=== PATIENT | female | born 1980 | race Caucasian/White ===

== ENCOUNTER 2016-09-03 18:03 | Emergency (ER) | payer OTHER ==
[~2016-09-03] VITALS: Ht 172.7 cm; Wt 113.4 kg
[2016-09-03 19:02] LABS: BASO % 0.5 % (0.0-1.0); EOS # 0.6 K/mm3 (0.0-0.50); EOS % 6.2 % (0.0-3.0); LARGE UNSTAINED CELL # 0.2 K/mm3 (0.0-0.4); LARGE UNSTAINED CELL % 1.7 % (0.0-4.0); LYMPH # 2.5 K/mm3 (1.5-4.5); LYMPH % 26.6 % (24.0-44.0); MEAN CORPUSCULAR HEMOGLOBIN 28.5 pg (27.0-33.0); MEAN CORPUSCULAR HGB CONC 32.7 g/dl (32.0-36.5); MEAN CORPUSCULAR VOLUME 87.1 fl (80.0-96.0); MONO # 0.6 K/mm3 (0.0-0.8); MONO % 6.7 % (0.0-5.0); NEUTROPHILS # 5.2 K/mm3 (1.8-7.7); NEUTROPHILS % 58.3 % (36.0-66.0); PLATELET COUNT, AUTOMATED 317 k/mm3 (150-450); RED CELL DISTRIBUTION WIDTH 13.2 % (11.5-14.5)
[2016-09-03 19:06] VITALS: BP 131/72
[2016-09-03 19:17] LABS: CONTROL LINE HCG INT CTR LINE PRESENT
[2016-09-03 19:25] LABS: ALBUMIN 3.7 GM/DL (3.2-5.2); ALBUMIN/GLOBULIN RATIO 1.09 (1.00-1.93); ALKALINE PHOSPHATASE 73 U/L (45-117); ALT/SGPT 16 U/L (12-78); ANION GAP 7 MEQ/L (8-16); AST/SGOT 10 U/L (15-37); BILIRUBIN,DIRECT < 0.1 MG/DL (0.0-0.2); BILIRUBIN,TOTAL 0.2 MG/DL (0.2-1.0); BLOOD UREA NITROGEN 17 MG/DL (7-18); CALCIUM LEVEL 8.2 MG/DL (8.5-10.1); CARBON DIOXIDE LEVEL 26 MEQ/L (21-32); CHLORIDE LEVEL 106 MEQ/L (98-107); CREATININE FOR GFR 0.87 MG/DL (0.55-1.02); GLOMERULAR FILTRATION RATE > 60.0 (>60); GLUCOSE, FASTING 124 MG/DL (70-105); POTASSIUM SERUM 3.7 MEQ/L (3.5-5.1); SODIUM LEVEL 139 MEQ/L (136-145); TOTAL PROTEIN 7.1 GM/DL (6.4-8.2)
--- NOTE | 2016-09-03 19:47 | REP ---
Clinical: Chest pain . Comparison: 01/14/2011 . Findings: The mediastinum and cardiac silhouette are stable and within normal limits for portable technique. The lung thayer are clear without acute consolidation, effusion, or pneumothorax. Skeletal structures are intact. Impression: Normal portable chest x-ray Signed by Saulo Ramos MD 09/03/2016 07:38 P
[2016-09-03] MEDS ORDERED: NS 1,000 ML IV ONE (20:00)
[2016-09-03] MEDS ORDERED: ISOVUE-370 76% 100ML VIAL (Q9967) As Ordered ONE (20:18)
[2016-09-03] MEDS ORDERED: PRED20TA PO (21:50)
--- NOTE | 2016-09-04 07:22 | ECGEPIP ---
Stationary ECG Study [facility] - ED Test Date: 2016-09-03 Pat Name: TYE RICE Department: Room: - Gender: F Smudger: naye : 1980 Requested By: CATINA Morales Order Number: [id number] Reading MD: Samantha Bravo Measurements Intervals [place] Rate: 108 P: 19 UT: 158 QRS: 14 QRSD: 105 T: 29 QT: 342 QTc: 460 Interpretive Statements SINUS TACHYCARDIA NONSPECIFIC T-WAVE ABNORMALITY ABNORMAL RHYTHM ECG NO PRIOR FOR COMPARISON Electronically Signed On 09-04-2016 7:21:54 EDT by Samantha Bravo
--- NOTE | 2016-09-04 08:22 | REP ---
Clinical: Acute chest pain. Technique: Axial contrast enhanced images from the thoracic inlet to the upper abdomen using 100 ml Isovue 370 intravenous contrast material with coronal and sagittal re-formations. Findings: Satisfactory enhancement of the pulmonary vasculature is achieved and no filling defects are identified to suggest pulmonary embolus. Thoracic aorta is normal caliber without aneurysm or dissection. Heart and pericardium are normal. Lung thayer demonstrate increased interstitial markings and mid to lower lobe ground-glass opacities suggesting moderate bronchitis. No discrete focal consolidation, effusion, or pneumothorax. Small noncalcified nodules are suspected but poorly evaluated due to surrounding ground-glass opacities and increased interstitial markings and may warrant followup examination. No significant adenopathy. Tracheobronchial tree is patent. Surrounding musculoskeletal structures are intact. Impression: 1. No evidence for pulmonary embolus. 2. Increased markings and ground glass opacities suggest moderate bronchitis. 3. Small noncalcified nodules up to 4 mm are suggested but poorly identified due to surrounding opacities and follow-up examination may be warranted. Signed by Saulo Ramos MD 09/03/2016 08:46 P
== END 2016-09-03 22:11 | disposition home or self-care (01) ==
LOC: M ED 19:16
DX: J20.9 Acute bronchitis, unspecified (principal)
CPT/HCPCS: 36415; 71010; 71275; 80048; 80076; 82550; 82553; 84703; 85025; 85379; 93005; 93041; 94760; 99284; Q9967

== ENCOUNTER → 2016-10-24 | Outpatient (REF) | payer OTHER ==
[~2016-10-24] MED LIST: PRED20TA PO
== END ==
LOC: M LAB REF 17:10
PROVIDERS: ATTEND Obstetrics & Gynecology
DX: Z12.4 Encounter for screening for malignant neoplasm of cervix (principal); R87.613 High grade squamous intraepithelial lesion on cytologic smear of cervix (HGSIL)

== ENCOUNTER → 2016-10-31 | Outpatient (REF) | payer OTHER ==
[~2016-10-31] MED LIST changes: +EPIP0.3I2 IM; +NORA0.35 PO; +OMEP40CA2 PO
== END ==
LOC: M LABDRAW1 11:40
PROVIDERS: ATTEND Internal Medicine Cardiovascular Disease
DX: R07.89 Other chest pain (principal)

== ENCOUNTER → 2016-11-07 | Outpatient (CLI) | payer OTHER ==
[~2016-11-07] VITALS: Ht 175.3 cm; Wt 118.4 kg
[~2016-11-07] MED LIST changes: +LIDOCAINE 2% INJ 100 MG/5 ML SDV (FOR ANES.) As Ordered ONE; +NS 1,000 ML IV ONE; +PROPOFOL 200 MG/20 ML VIAL As Ordered ONE; +fentaNYL 100 MCG/2 ML INJECTION (J3010) As Ordered ONE
--- NOTE | 2016-11-07 10:19 | ROOR ---
Patient Name: Maribel Donnelly Procedure Date: 11/07/2016 10:02 AM Date of : 1980 Age: 36 Room: [facility] Gender: Female Note Status: Finalized Procedure: Upper GI endoscopy Indications: Epigastric abdominal pain Providers: Leonardo Michelle Jr, MD Referring MD: Wyatt Alves MD Requesting Provider: Medicines: Propofol per Anesthesia Complications: No immediate complications. Procedure: Pre-Anesthesia Assessment: - Prior to the procedure, a History and Physical was performed, and patient medications and allergies were reviewed. The patient is competent. The risks and benefits of the procedure and the sedation options and risks were discussed with the patient. All questions were answered and informed consent was obtained. Patient identification and proposed procedure were verified by the physician and the nurse in the pre-procedure area and in the procedure room. Mental Status Examination: alert and oriented. Airway Examination: normal oropharyngeal airway and neck mobility. Respiratory Examination: clear to auscultation. CV Examination: normal. ASA Grade Assessment: II - A patient with mild systemic disease. After reviewing the risks and benefits, the patient was deemed in satisfactory condition to undergo the procedure. The anesthesia plan was to use moderate sedation / analgesia (conscious sedation). Immediately prior to administration of medications, the patient was re-assessed for adequacy to receive sedatives. The heart rate, respiratory rate, oxygen saturations, blood pressure, adequacy of pulmonary ventilation, and response to care were monitored throughout the procedure. The physical status of the patient was re-assessed after the procedure. The Endoscope was introduced through the mouth, and advanced to the second part of duodenum. The upper GI endoscopy was accomplished without difficulty. The patient tolerated the procedure well. Findings: The upper third of the esophagus, middle third of the esophagus and lower third of the esophagus were normal. The cardia, gastric fundus, gastric body, gastric antrum and pylorus were normal. Localized mildly erythematous mucosa without bleeding was found in the prepyloric region of the stomach. Biopsies were taken with a cold forceps for histology. Patchy mild inflammation characterized by congestion (edema), erythema, friability and granularity was found in the first portion of the duodenum. The first portion of the duodenum and second portion of the duodenum were normal. Impression: - Normal upper third of esophagus, middle third of esophagus and lower third of esophagus. - Normal cardia, gastric fundus, gastric body, antrum and pylorus. - Erythematous mucosa in the prepyloric region of the stomach. Biopsied. - Duodenitis. - Normal first portion of the duodenum and second portion of the duodenum. Recommendation: - Discharge patient to home (ambulatory). - Return to my office in 2 weeks. Leonardo Michelle MD Leonardo Michelle Jr, MD 11/07/2016 10:19:05 AM This report has been signed electronically. Number of Addenda: 0 Note Initiated On: 11/07/2016 10:02 AM Estimated Blood Loss: Estimated blood loss: none.
[2016-11-07 10:35] VITALS: BP 149/85
== END | disposition home or self-care (01) ==
LOC: M OPP 09:17
PROVIDERS: ATTEND Surgery
DX: R10.13 Epigastric pain (principal); K29.80 Duodenitis without bleeding; K31.89 Other diseases of stomach and duodenum; R07.89 Other chest pain; R12 Heartburn; K21.9 Gastro-esophageal reflux disease without esophagitis; F41.9 Anxiety disorder, unspecified; J45.909 Unspecified asthma, uncomplicated; E66.9 Obesity, unspecified; Z91.040 Latex allergy status; Z88.8 Allergy status to other drugs, medicaments and biological substances; Z88.0 Allergy status to penicillin; Z91.018 Allergy to other foods; Z79.899 Other long term (current) drug therapy
CPT/HCPCS: 43239; 88305; J3010

== ENCOUNTER → 2016-11-12 | Outpatient (REF) | payer OTHER ==
[~2016-11-12] MED LIST changes: -LIDOCAINE 2% INJ 100 MG/5 ML SDV (FOR ANES.) As Ordered ONE; -NS 1,000 ML IV ONE; -PROPOFOL 200 MG/20 ML VIAL As Ordered ONE; -fentaNYL 100 MCG/2 ML INJECTION (J3010) As Ordered ONE
== END ==
LOC: M LAB REF 16:55
PROVIDERS: ATTEND Obstetrics & Gynecology
DX: R87.613 High grade squamous intraepithelial lesion on cytologic smear of cervix (HGSIL) (principal)

== ENCOUNTER → 2016-12-19 | Outpatient (CLI) | payer OTHER ==
[~2016-12-19] MED LIST changes: +MIREIUD IU
--- NOTE | 2016-12-19 16:00 | REP ---
Digital diagnostic bilateral mammography and focused left breast sonography: History: Lump in the left breast. No comparison studies. Findings: A skin marker is affixed to the skin at the site of the palpable lump. Routine views of the left breast are augmented by magnified focal spot compression CC MLO and true MLO views. Routine views the right breast are obtained as requested. Scattered fibroglandular densities are seen bilaterally. No dominant density architectural distortion or microcalcification is seen. There is no evidence of a nodular mass at the site of the palpable lump in the left breast or elsewhere on either side mammographically. Sonographic findings: Focused left breast sonography is performed. The left breast is scanned from 8 o'clock to 10 o'clock centering on the palpable lump at 9 o'clock. Fairly homogeneous fatty background echotexture is seen. No mass or architectural distortion is seen by ultrasound. Impression: BIRADS category one negative bilateral breast imaging. This negative report should not dissuade one from biopsy of a palpable lump depending on its clinical characteristics. Clinical follow-up is recommended. This mammogram was interpreted with the aid of an FDA-approved computer-aided detection system. The patient states she had a clinical breast exam in November 2016. The patient letter being requested is M2. Signed by Tee Peterson MD 12/19/2016 05:15 P
== END ==
LOC: M RAD 12:30
PROVIDERS: ATTEND Obstetrics & Gynecology
DX: N63 Unspecified lump in breast (principal)
CPT/HCPCS: 76642; G0204

== ENCOUNTER → 2016-12-20 | Day surgery (SDC) | payer OTHER ==
[~2016-12-20] VITALS: Ht 174 cm; Wt 113.4 kg
[~2016-12-20] MED LIST changes: +HYDROmorphone HCL 1 MG/ML SYRINGE (J1170) IV PRN; +IODINE STRONG SOLN 15 ML BTL As Ordered ONE; +KETOROLAC 60 MG/2 ML VIAL (J1885) As Ordered ONE; +LIDOCAINE 2% INJ 100 MG/5 ML SDV (FOR ANES.) As Ordered ONE; +LIDOCAINE W/EPINEPHRINE 1% 20ML VIAL As Ordered ONE; +LR 1,000 ML IV ONE; +LR 1,000 ML IV SCH; +MIDAZOLAM INJ 2 MG/2 ML VIAL (J2250) As Ordered ONE; +ONDANSETRON 4MG/2ML VIAL (J2405) As Ordered ONE; +ONDANSETRON 4MG/2ML VIAL (J2405) IV PRN; +PERCOCET 5MG/325MG TAB As Ordered ONE; +PERCOCET 5MG/325MG TAB PO PRN; +PROPOFOL 200 MG/20 ML VIAL As Ordered ONE; +SILVER NITRATE APPLICATOR As Ordered ONE; +dexameTHASONE 4 MG/ML 1ML VIAL (J1100) As Ordered ONE; +ePHEDrine SULFATE 25 MG/5 ML(5MG/ML) SYRINGE As Ordered ONE; +fentaNYL 100 MCG/2 ML INJECTION (J3010) IV PRN; +fentaNYL 250 MCG/5 ML INJECTION (J3010) As Ordered ONE
[2016-12-20 10:40] LABS: MEAN CORPUSCULAR HEMOGLOBIN 29.1 pg (27.0-33.0); MEAN CORPUSCULAR HGB CONC 33.9 g/dl (32.0-36.5); RED CELL DISTRIBUTION WIDTH 13.2 % (11.5-14.5); WHITE BLOOD COUNT 6.7 K/mm3 (4.0-10.0)
[2016-12-20 11:01] LABS: CONTROL LINE HCG INT CTR LINE PRESENT
[2016-12-20 15:30] VITALS: BP 130/77
--- NOTE | 2016-12-21 13:36 | RO ---
DATE OF PROCEDURE: 12/20/2016 PREPROCEDURE DIAGNOSIS: GABBIE 2, high-grade cervical dysplasia. POSTPROCEDURE DIAGNOSIS: GABBIE 2, high-grade cervical dysplasia. PROCEDURE PERFORMED: Loop electrosurgical excision procedure (LEEP). SURGEON: Dr. Luan Us FITTER TACKER: none ANESTHESIA TYPE: General via laryngeal mask airway (LMA). FINDINGS: Differential staining at 6-o'clock position, consistent with colposcopic-directed cervical biopsy in the office. SPECIMEN TO PATHOLOGY: LEEP specimen in three portions, bottom half of ectocervix, top half of ectocervix, and endocervix. FLUIDS REPLACED: 900 mL. ESTIMATED BLOOD LOSS: 25 mL. DRAINS: In-and-out catheter, 200 mL urine output. COMPLICATIONS: None. PREOPERATIVE ANTIBIOTICS: None. INDICATION: Patient is a 36-year-old with a recent diagnosis of GABBIE 2, high-grade cervical dysplasia. PROCEDURE PERFORMED: Patient was counseled and consented on the risks, benefits , indications, and alternatives of the LEEP procedure. Informed consent was obtained. She was taken to the operating room with an intravenous (IV) running. She was placed on operating table in dorsal supine position where general anesthesia was administered without any difficulty. The airway was secured without any difficulty. The patient was placed in the low lithotomy position. She was prepared and draped in normal sterile fashion. Time-out was performed per protocol. The bladder was drained with an in-and-out catheter. The speculum was placed with good visualization of the cervix. The sidewall retractors were placed given that the patient had redundant vaginal tissue blocking the vaginal canal. The cervix was then stained with Lugol's solution with the findings noted above. Using a 20 x 12 mm loop, the LEEP was performed starting at the bottom half of the ectocervix/transformation zone moving to the top half of the ectocervix/transformation zone. This removed the entire transformation zone, and then the endocervix was excised with the loop instrument. The three specimens were removed from the vagina and sent to pathology for permanent section. The remaining cervix was cauterized with the rollerball cautery at a setting of 60-60. Excellent hemostasis was achieved apart from the bottom half of the cervix. A small amount of bleeding was noted along the ectocervix and endocervix. A Sturmdorf stitch was placed in the bottom half of the cervix to achieve hemostasis. #3-0 Vicryl was used for suture material. Excellent hemostasis was noted. Monsel solution was applied to this area to ensure hemostasis. Minimal to no bleeding was noted at this point. The instruments removed from the vagina. The sponge, lap, needle, and instruments counts were correct, and the patient tolerated the entire procedure well. She was transferred to the post anesthesia care (PAC) unit in good and stable condition. PAUL
== END | disposition home or self-care (01) ==
LOC: M SDC 10:06
PROVIDERS: ATTEND Obstetrics & Gynecology
DX: D06.9 Carcinoma in situ of cervix, unspecified (principal); G97.1 Other reaction to spinal and lumbar puncture; T88.59XD Other complications of anesthesia, subsequent encounter; J45.909 Unspecified asthma, uncomplicated; R51 Headache; Z88.0 Allergy status to penicillin; Z88.6 Allergy status to analgesic agent; Z88.8 Allergy status to other drugs, medicaments and biological substances; Z91.030 Bee allergy status; Z91.040 Latex allergy status; Z91.018 Allergy to other foods; Z79.899 Other long term (current) drug therapy; Z79.3 Long term (current) use of hormonal contraceptives

== ENCOUNTER 2017-01-08 17:14 | Emergency (ER) | payer OTHER ==
[~2017-01-08] VITALS: Ht 172.7 cm; Wt 117.7 kg
[~2017-01-08 17:14] MED LIST changes: -HYDROmorphone HCL 1 MG/ML SYRINGE (J1170) IV PRN; -IODINE STRONG SOLN 15 ML BTL As Ordered ONE; -KETOROLAC 60 MG/2 ML VIAL (J1885) As Ordered ONE; -LIDOCAINE 2% INJ 100 MG/5 ML SDV (FOR ANES.) As Ordered ONE; -LIDOCAINE W/EPINEPHRINE 1% 20ML VIAL As Ordered ONE; -LR 1,000 ML IV ONE; -LR 1,000 ML IV SCH; -MIDAZOLAM INJ 2 MG/2 ML VIAL (J2250) As Ordered ONE; -MIREIUD IU; -ONDANSETRON 4MG/2ML VIAL (J2405) As Ordered ONE; -ONDANSETRON 4MG/2ML VIAL (J2405) IV PRN; -PERCOCET 5MG/325MG TAB As Ordered ONE; -PERCOCET 5MG/325MG TAB PO PRN; -PROPOFOL 200 MG/20 ML VIAL As Ordered ONE; -SILVER NITRATE APPLICATOR As Ordered ONE; -dexameTHASONE 4 MG/ML 1ML VIAL (J1100) As Ordered ONE; -ePHEDrine SULFATE 25 MG/5 ML(5MG/ML) SYRINGE As Ordered ONE; -fentaNYL 100 MCG/2 ML INJECTION (J3010) IV PRN; -fentaNYL 250 MCG/5 ML INJECTION (J3010) As Ordered ONE
--- NOTE | 2017-01-08 19:00 | REPUSA ---
CLINICAL HISTORY: Status post LEEP procedure, pelvic pain. TECHNIQUE: Realtime sonographic images were obtained in multiple projections. COMMENTS: The uterus is retroverted and retroflexed measuring 8.1 x 4.5 x 5.2 cm. The endometrial echo pattern is within normal limits measuring 4.0 mm. There is a posterior fibroid noted measuring 8.0 x 5.9 x 5 .5 mm. There is evidence of free fluid within the pelvic cul-de-sac. The right ovary measures 3.6 x 2.3 x 5.4 cm with an RI of 0.43. There is a simple cyust noted measuri ng 2.2 x 2.6 x 2.1 cm and a hemorrhagic cyst noted mesauring 2.5 x 2.2 x 1.9 cm. The left ovary measu res 1.9 x 1.9 x 3.8 cm with an RI of 0.50. There is no evidence for abnormal vascularity. IMPRESSION: 1. Retroverted retroflexed uterus. 2. Posterior uterine fibroid. 3. Free fluid in the pelvic cul-de-sac. 4. Right ovarian simple cyst and hemorrhagic cyst. Thank you for your kind referral of this patient. We appreciate the opportunity to participate in thi s patient's care.
[2017-01-08 19:48] VITALS: BP 116/72
[2017-03-25] MEDS ORDERED: MIREIUD IU (09:13)
== END 2017-01-08 20:00 | disposition home or self-care (01) ==
LOC: M ED 17:14
DX: N83.291 Other ovarian cyst, right side (principal); D25.9 Leiomyoma of uterus, unspecified; K21.9 Gastro-esophageal reflux disease without esophagitis

== ENCOUNTER → 2017-04-01 | Outpatient (CLI) | payer OTHER ==
[~2017-04-01] MED LIST changes: +MIREIUD IU
[2017-04-01 08:49] LABS: BASO % 0.4 % (0.0-1.0); EOS # 0.4 10^3/uL (0.0-0.50); EOS % 5.8 % (0.0-3.0); IMMATURE GRANULOCYTE % 0.3 % (0-0); MEAN CORPUSCULAR HEMOGLOBIN 27.2 pg (27.0-33.0); MEAN CORPUSCULAR HGB CONC 32.1 g/dl (32.0-36.5); MONO # 0.7 10^3/uL (0.0-0.8); MONO % 9.7 % (0.0-5.0); NEUTROPHILS # 4.4 10^3/uL (1.8-7.7); NEUTROPHILS % 57.8 % (36.0-66.0); PLATELET COUNT, AUTOMATED 313 10^3/uL (150-450); RED CELL DISTRIBUTION WIDTH 13.6 % (11.5-14.5); WHITE BLOOD COUNT 7.5 10^3/uL (4.0-10.0)
[2017-04-01 09:17] LABS: ALBUMIN 3.6 GM/DL (3.2-5.2); ALKALINE PHOSPHATASE 80 U/L (45-117); ALT/SGPT 15 U/L (12-78); ANION GAP 5 MEQ/L (8-16); AST/SGOT 7 U/L (15-37); BILIRUBIN,TOTAL 0.4 MG/DL (0.2-1.0); BLOOD UREA NITROGEN 12 MG/DL (7-18); CALCIUM LEVEL 8.7 MG/DL (8.5-10.1); CARBON DIOXIDE LEVEL 27 MEQ/L (21-32); CHLORIDE LEVEL 107 MEQ/L (98-107); CREATININE FOR GFR 0.77 MG/DL (0.55-1.02); GLOMERULAR FILTRATION RATE > 60.0 (>60); GLUCOSE, FASTING 101 MG/DL (70-105); POTASSIUM SERUM 3.8 MEQ/L (3.5-5.1); SODIUM LEVEL 139 MEQ/L (136-145); TOTAL PROTEIN 7.2 GM/DL (6.4-8.2)
== END ==
LOC: M LAB 08:23
PROVIDERS: ATTEND Family Medicine
DX: Z01.818 Encounter for other preprocedural examination (principal)

== ENCOUNTER → 2017-07-08 | Outpatient (REF) | payer OTHER ==
[2017-07-11 14:13] LABS: HPV HYBRID CAPTURE II Negative (Negative)
== END ==
LOC: M LAB REF 17:55
DX: Z12.4 Encounter for screening for malignant neoplasm of cervix (principal)

== ENCOUNTER → 2017-07-08 | Outpatient (REF) | payer OTHER | LOC: M LAB REF 18:06 | DX: D06.1 Carcinoma in situ of exocervix (principal) ==

== ENCOUNTER → 2018-01-08 | Outpatient (REF) | payer OTHER ==
[2018-01-10 14:10] LABS: HPV HYBRID CAPTURE II Negative (Negative)
== END ==
LOC: M LAB REF 13:36
DX: Z12.4 Encounter for screening for malignant neoplasm of cervix (principal); R87.610 Atypical squamous cells of undetermined significance on cytologic smear of cervix (ASC-US)
CPT/HCPCS: 88142

== ENCOUNTER 2018-07-29 20:17 | Emergency (ER) | payer OTHER ==
[~2018-07-29] VITALS: Ht 175.3 cm; Wt 118.2 kg
[~2018-07-29 20:17] MED LIST changes: -CLOT10TR PO
[2018-07-29 22:47] VITALS: BP 130/81
[2018-07-29] MEDS ORDERED: CLOT10TR PO (23:45)
== END 2018-07-30 00:02 | disposition home or self-care (01) ==
LOC: M ED 20:17
DX: B37.0 Candidal stomatitis (principal); J45.909 Unspecified asthma, uncomplicated; F41.9 Anxiety disorder, unspecified; I25.2 Old myocardial infarction; Z88.8 Allergy status to other drugs, medicaments and biological substances; Z88.0 Allergy status to penicillin; Z91.030 Bee allergy status; Z91.018 Allergy to other foods; Z91.040 Latex allergy status; Z79.899 Other long term (current) drug therapy; Z97.5 Presence of (intrauterine) contraceptive device

== ENCOUNTER → 2018-07-29 | Outpatient (REF) | payer OTHER ==
[~2018-07-29] MED LIST changes: +CLOT10TR PO; +MIRE1IUD IU; -MIREIUD IU
== END ==
LOC: M LAB REF 11:57
PROVIDERS: ATTEND Physician Assistant
DX: J03.90 Acute tonsillitis, unspecified (principal)

== ENCOUNTER → 2018-07-29 | Outpatient (CLI) | payer OTHER ==
[2018-07-29 11:57] LABS: BASO # 0.1 10^3/uL (0.0-0.2); BASO % 0.5 % (0.0-1.0); EOS # 0.3 10^3/uL (0.0-0.50); EOS % 3.5 % (0.0-3.0); HEMATOCRIT 44.1 % (36.0-47.0); LYMPH # 2.1 10^3/uL (1.5-4.5); LYMPH % 22.1 % (24.0-44.0); MEAN CORPUSCULAR HEMOGLOBIN 27.8 pg (27.0-33.0); MEAN CORPUSCULAR HGB CONC 31.7 g/dl (32.0-36.5); MEAN CORPUSCULAR VOLUME 87.7 fl (80.0-96.0); MONO # 0.9 10^3/uL (0.0-0.8); MONO % 9.1 % (0.0-5.0); NEUTROPHILS # 6.1 10^3/uL (1.8-7.7); NEUTROPHILS % 64.4 % (36.0-66.0); PLATELET COUNT, AUTOMATED 322 10^3/uL (150-450); RED BLOOD COUNT 5.03 10^6/uL (4.00-5.40); WHITE BLOOD COUNT 9.5 10^3/uL (4.0-10.0)
[2018-07-29 12:27] LABS: ALBUMIN 3.9 GM/DL (3.2-5.2); ALT/SGPT 17 U/L (12-78); BILIRUBIN,TOTAL 0.5 MG/DL (0.2-1.0); BLOOD UREA NITROGEN 11 MG/DL (7-18); CALCIUM LEVEL 8.4 MG/DL (8.5-10.1); CARBON DIOXIDE LEVEL 26 MEQ/L (21-32); CHLORIDE LEVEL 103 MEQ/L (98-107); CREATININE FOR GFR 0.76 MG/DL (0.55-1.30); GLOMERULAR FILTRATION RATE > 60.0 (>60); GLUCOSE, FASTING 88 MG/DL (70-100); POTASSIUM SERUM 4.1 MEQ/L (3.5-5.1); SODIUM LEVEL 138 MEQ/L (136-145); TOTAL PROTEIN 7.4 GM/DL (6.4-8.2)
[2018-07-31 00:07] LABS: EBV AB TO NUCLEAR ANTIGEN 67.3 U/mL (0.0-17.9); EBV VIRAL CAPSID AG IgM <36.0 U/mL (0.0-35.9)
== END ==
LOC: M WUC 10:10
PROVIDERS: ATTEND Physician Assistant
DX: J03.90 Acute tonsillitis, unspecified (principal)

== ENCOUNTER 2018-12-04 05:45 | Day surgery (SDC) | payer OTHER ==
[~2018-12-04] VITALS: Ht 175.3 cm; Wt 117.9 kg
[~2018-12-04 05:45] MED LIST changes: +CLOT10TR PO
[2018-12-04] MEDS ORDERED: LIDOCAINE 1% MDV 20ML VIAL SQ PRN (06:00)
[2018-12-04] MEDS ORDERED: MIDAZOLAM INJ 2 MG/2 ML VIAL (J2250) As Ordered ONE (06:43)
[2018-12-04] MEDS ORDERED: fentaNYL 100 MCG/2 ML INJECTION (J3010) As Ordered ONE (06:43)
[2018-12-04] MEDS ORDERED: LIDOCAINE 2% INJ 100 MG/5 ML SDV (FOR ANES.) As Ordered ONE (06:44)
[2018-12-04] MEDS ORDERED: ONDANSETRON 4MG/2ML VIAL (J2405) As Ordered ONE (06:44)
[2018-12-04] MEDS ORDERED: dexameTHASONE 4 MG/ML 1ML VIAL (J1100) As Ordered ONE (06:44)
[2018-12-04] MEDS ORDERED: KETOROLAC 60 MG/2 ML VIAL (J1885) As Ordered ONE (06:44)
[2018-12-04] MEDS ORDERED: PROPOFOL 200 MG/20 ML VIAL As Ordered ONE ×2 (06:44→08:00)
[2018-12-04 06:53] LABS: URINE PREG TEST NEGATIVE (NEGATIVE)
[2018-12-04] MEDS ORDERED: LR 1,000 ML IV ONE (07:00)
[2018-12-04] MEDS ORDERED: ACETAMINOPHEN 1000MG 100ML IV BTL (OFIRMEV) (J0131 PER 10MG) As Ordered ONE (07:06)
[2018-12-04] MEDS ORDERED: METOCLOPRAMIDE INJ 10MG/2ML VIAL (J2765) As Ordered ONE (07:07)
[2018-12-04] MEDS ORDERED: ROCURONIUM BROMIDE 50 MG/5 ML VIAL As Ordered ONE (07:07)
[2018-12-04] MEDS ORDERED: SCOPOLAMINE 1MG TRANSDERMAL PATCH As Ordered ONE (07:12)
[2018-12-04] MEDS ORDERED: ROPIvacaine 0.5% 30 ML INJECTION (J2795 PER 1MG) As Ordered ONE (07:14)
[2018-12-04] MEDS ORDERED: SCOPOLAMINE 1MG TRANSDERMAL PATCH TOP ONE (07:30)
[2018-12-04] MEDS ORDERED: SUGAMMADEX SODIUM 500 MG/5 ML VIAL (BRIDION) As Ordered ONE (08:03)
[2018-12-04] MEDS ORDERED: LR 1,000 ML IV SCH ×2 (09:00)
[2018-12-04] MEDS ORDERED: oxyCODONE 5MG TAB PO PRN (09:00)
[2018-12-04] MEDS ORDERED: ONDANSETRON 4MG/2ML VIAL (J2405) IV PRN (09:00)
[2018-12-04] MEDS: fentaNYL 100 MCG/2 ML INJECTION (J3010) IV PRN ×4 (09:15→09:30)
--- NOTE | 2018-12-04 09:44 | RO ---
DATE OF PROCEDURE: 12/04/2018 PREOPERATIVE DIAGNOSIS: Right knee lateral meniscus tear. POSTOPERATIVE DIAGNOSIS: Right knee small partial lateral meniscus tear, chondromalacia of patellofemoral joint. PLANNED PROCEDURE: Right knee arthroscopy, partial lateral meniscectomy intra-articular surgery. PROCEDURE PERFORMED: Right knee arthroscopy, partial lateral meniscectomy intra-articular surgery, plus chondroplasty patellofemoral joint and debridement. SURGEON: Dr. Robin Richards SCREWHEAD STONER AND POLISHER: Dr. Prince ANESTHESIA: General anesthetic. OPERATIVE PREAMBLE: This 38-year female experienced anterolateral knee pain, clicking and some mechanical symptoms with her knee with going up and down stairs. This persisted despite nonsurgical management. We talked about the pros, cons, risks, and benefits of going ahead with right knee arthroscopic intra-articular surgery and possible partial lateral meniscectomy. MRI had shown a small fragment within the notch, possible bucket handle tear. I reiterated the surgical risks including, but not limited to infection, pain, stiffness, bleeding, neurovascular injury, lobsterman risk of arthritis, anesthetic complications, and . She wished to proceed. We updated her forms. I marked the right knee. She had no further questions. OPERATIVE REPORT: The patient was brought to operating theater. She was placed supine on the operating room table. Stress positioner was used on the right thigh with tourniquet 44 inch applied the right thigh. Two grams of IV Ancef was administered. General anesthesia was induced. The leg was prepped and draped in the usual sterile fashion. A preoperative timeout was performed to confirm the site and the patient. The leg was elevated and tourniquet inflated. Areas of the arthroscopy portals were marked and infiltrated with approximately 10 mL each of 0.25% Marcaine. I established a high anterolateral portal for visualization and then under direct visualization inside out using spinal needle I established a mid anteromedial portal. I performed a full diagnostic arthroscopy of the knee. The undersurface of patella had grade 2-3 changes on its undersurface. The trochlea also had grade 2 changes in its mid aspect of the groove. These were both debrided to stable margins. There was also a lateral distal femur area of focal cartilage thinning and softening grade 2-3 changes; again, measuring approximately 7 x 10 mm. This was debrided back to stable margins as well. Lateral and medial gutters were entered and examined. Popliteus appeared normal. There were no obvious loose bodies. Medial compartment was then entered and examined. Cartilage showed no changes on either the femoral or the tibial side. The medial meniscus was normal and stable to probing on both the superior and undersurfaces. Shaver was used to debride some of the fat pad to fully examine the anterior and posterior roots which appeared again stable. Intrameniscal ligament was normal and stable. The notch was entered and the knee allowed to flex down to 90 degrees. Ligamentum mucosum was debrided. Anterior cruciate ligament (ACL) and posterior cruciate ligament (PCL) both were stable and solid. Preoperative examination under anesthesia (EUA) had also been performed which showed a stable Gabi and no pivot shift. ACL and PCL were both stable and solid to probing. The lateral compartment was then entered. Again, cartilage on the tibia and femur appeared normal. Meniscus had some fraying in the mid substance at approximately the mid body. This was debrided to stable margins. The roots appeared again normal after clearing away some soft tissue just superficial to this. There was no obvious bucket handle tear, but there was some area of chondral damage and fraying and near the lateral tibial spine near the posterior root that could definitely have been confused for a small area of meniscal damage. I debrided this away again to stable margins, ensuring to take care to preserve the ACL [place] tissue. There was quite a bit of fat pad and soft tissue impinging in and around the patella as well as in the medial and lateral compartments and so I paid particular attention to debride this away and take arthroscopy pictures along the way to document the progress and for relief of this. There did appear to be a lateral plica within the knee that could be causing some clicking and mechanical symptoms and again I debrided this away. I thoroughly irrigated the knee. The wound was cleaned with wet to dry dressing. Subcutaneous tissues were closed with interrupted #3-0 Monocryl sutures. Steri-Strips were applied. Adaptic, sterile 4x8 gauze and sterile ABD dressings were applied and overwrapped with sterile 6 inch Rahul bandage. The tourniquet was taken down prior to the end of the case. The patient woken up from the general anesthetic, transferred off the operating room table and taken postanesthetic care unit in stable condition. All sponge, needle, and instrument counts were correct. There were no complications. Estimated blood loss was 10 mL. The plan for the patient is to be discharged home according to day surgery criteria. She will be weightbearing as tolerated. Try to elevate the knee to get the swelling down, use ice and potentially a Cryo Cuff, which we did talk about prior to the surgery. I would like to see her back in 2-3 days time. Pain control will be achieved with oral Tylenol and anti-inflammatories. I went to talk to Maribel's , but he unfortunately was not in the waiting room. If they have any questions, the office number is available and I would like to see them again briefly in followup. They can change the dressing postoperative day two or three.
[2018-12-04 10:55] VITALS: BP 126/71
== END 2018-12-04 11:32 | disposition home or self-care (01) ==
LOC: M SDC 05:45
PROVIDERS: ATTEND Orthopaedic Surgery Sports Medicine
DX: S83.281A Other tear of lateral meniscus, current injury, right knee, initial encounter (principal); M94.261 Chondromalacia, right knee; I25.2 Old myocardial infarction; Z91.040 Latex allergy status; Z91.030 Bee allergy status; K21.9 Gastro-esophageal reflux disease without esophagitis; F41.9 Anxiety disorder, unspecified; J45.909 Unspecified asthma, uncomplicated; Z79.899 Other long term (current) drug therapy; Z88.0 Allergy status to penicillin; Z88.8 Allergy status to other drugs, medicaments and biological substances; Y92.89 Other specified places as the place of occurrence of the external cause; Y93.9 Activity, unspecified
CPT/HCPCS: 29881; 84703; J0131; J0690; J1100; J1885; J2250; J2405; J2765; J2795; J3010

== ENCOUNTER 2019-01-17 19:43 | Emergency (ER) | payer OTHER ==
[~2019-01-17] VITALS: Ht 175.3 cm; Wt 118.2 kg
[2019-01-17 19:43] VITALS: BP 140/80
[~2019-01-17 19:43] MED LIST changes: -OMEP40CA2 PO; +OMEP40CA97 PO
--- NOTE | 2019-01-18 00:48 | REP ---
Clinical: Pain due to repetitive use Technique: AP, lateral, bilateral oblique views left foot . Findings: The osseous structures and joint spaces are intact and normal. There is no evidence for acute fracture or dislocation. Surrounding soft tissues are unremarkable. No subcutaneous emphysema or radiodense foreign body. Impression: No acute fracture or dislocation. Electronically Signed by Saulo Ramos MD 01/18/2019 12:39 A
== END 2019-01-17 21:38 | disposition home or self-care (01) ==
LOC: M ED 19:43
DX: S93.602A Unspecified sprain of left foot, initial encounter (principal); X58.XXXA Exposure to other specified factors, initial encounter; Y92.89 Other specified places as the place of occurrence of the external cause; M77.9 Enthesopathy, unspecified; J45.909 Unspecified asthma, uncomplicated; K21.9 Gastro-esophageal reflux disease without esophagitis; I25.2 Old myocardial infarction; Z79.899 Other long term (current) drug therapy; Z97.5 Presence of (intrauterine) contraceptive device; Z88.0 Allergy status to penicillin; Z88.8 Allergy status to other drugs, medicaments and biological substances; Z91.030 Bee allergy status; Z91.040 Latex allergy status; Z87.891 Personal history of nicotine dependence

== ENCOUNTER → 2019-03-31 | Outpatient (CLI) | payer OTHER ==
--- NOTE | 2019-04-01 11:44 | REP ---
MRI left ankle without contrast: History: Plantar fascial fibromatosis. Peroneal nerve evaluation. Comparison radiographs of the left foot are from January 17, 2019. Technique: Axial, coronal, and sagittal imaging planes are utilized. T1 and T2-weighted scans were included with and without fat saturation. MRI findings: Cortical and medullary bone signal intensity are normal. No significant ankle or subtalar joint effusion is seen. There is no evidence to suggest tarsal coalition. No mass or cyst is seen. The calcaneofibular, posterior talofibular, anterior talofibular, and anterior inferior tibiofibular ligaments appear intact. Peroneus longus and brevis tendons have an intact appearance. The plantar fascia are smooth. There is no MR evidence of plantar fascial fibromatosis. There is thickening of the proximal plantar fascia at the Achilles insertion consistent with plantar fasciitis. The Achilles tendon is normal in size and homogeneous and normal in signal intensity. Tibialis posterior, flexor digitorum, and flexor hallicis longus tendons have an intact appearance as well. Impression: Plantar fasciitis pattern in the proximal plantar fascia. There is minimal edema adjacent to the insertion of the plantar fascia in the calcaneus. Otherwise negative. Electronically Signed by Tee Peterson MD 04/01/2019 06:23 P
--- NOTE | 2019-04-01 11:46 | REP ---
MRI left foot without contrast: History: Plantar fascial fibromatosis. Technique: Axial, coronal, and sagittal imaging planes were utilized. T1 and T2-weighted scans were obtained with and without fat saturation. Comparison left foot radiographs are from January 17, 2019. MRI findings: Cortical and medullary bone signal intensity are normal. There is no evidence of tarsal coalition. There is thickening and increased signal intensity in the proximal 1-1/2 cm of the plantar flash fascia at the calcaneal insertion. There is a small zone of marrow edema in the calcaneus at the plantar fascia insertion. The mid and distal plantar fascia are unremarkable. No fibromatous changes are appreciated. There is no evidence of joint effusion. No focal marrow or extraosseous edema is seen. There is no evidence of cyst or mass. Impression: Findings consistent with plantar fasciitis. Otherwise negative. Electronically Signed by Tee Peterson MD 04/01/2019 06:23 P
== END ==
LOC: M RAD 15:31
PROVIDERS: ATTEND Orthopaedic Surgery Sports Medicine
DX: M72.2 Plantar fascial fibromatosis (principal)

== ENCOUNTER 2020-04-21 12:18 | Emergency (ER) | payer OTHER ==
[~2020-04-21] VITALS: Ht 172.7 cm; Wt 128.1 kg
[2020-04-21] MEDS ORDERED: NS 1,000 ML IV ONE (13:15)
[2020-04-21] MEDS: GASTROGRAFIN SOLUTION 30ML PO SCH ×2 (13:40→14:22)
[2020-04-21 13:48] LABS: BASO # 0.1 10^3/uL (0.0-0.2); BASO % 0.7 % (0.0-1.0); EOS # 0.3 10^3/uL (0.0-0.5); EOS % 3.4 % (0.0-3.0); HEMATOCRIT 44.2 % (36.0-47.0); LYMPH # 2.1 10^3/uL (1.5-5.0); LYMPH % 23.4 % (24.0-44.0); MEAN CORPUSCULAR HEMOGLOBIN 27.8 pg (27.0-33.0); MEAN CORPUSCULAR HGB CONC 31.7 g/dl (32.0-36.5); MEAN CORPUSCULAR VOLUME 87.7 fl (80.0-96.0); MONO # 0.9 10^3/uL (0.0-0.8); MONO % 9.4 % (0.0-5.0); NEUTROPHILS # 5.7 10^3/uL (1.5-8.5); NEUTROPHILS % 62.5 % (36.0-66.0); PLATELET COUNT, AUTOMATED 350 10^3/uL (150-450); RED BLOOD COUNT 5.04 10^6/uL (4.00-5.40); WHITE BLOOD COUNT 9.1 10^3/uL (4.0-10.0)
[2020-04-21 13:57] LABS: INR 0.92; PROTHROMBIN TIME 12.5 SECONDS (12.5-14.3)
[2020-04-21 13:58] LABS: PARTIAL THROMBOPLASTIN TIME 31.4 SECONDS (24.2-38.5)
[2020-04-21 14:11] LABS: ALT/SGPT 16 U/L (12-78); BILIRUBIN,DIRECT 0.1 MG/DL (0.0-0.2); BILIRUBIN,TOTAL 0.2 MG/DL (0.2-1.0); BLOOD UREA NITROGEN 18 MG/DL (7-18); CALCIUM LEVEL 9.4 MG/DL (8.5-10.1); CARBON DIOXIDE LEVEL 26 MEQ/L (21-32); CHLORIDE LEVEL 107 MEQ/L (98-107); CREATININE FOR GFR 0.86 MG/DL (0.55-1.30); GLOMERULAR FILTRATION RATE > 60.0 (>60); GLUCOSE, FASTING 91 MG/DL (70-100); LIPASE 132 U/L (73-393); POTASSIUM SERUM 3.8 MEQ/L (3.5-5.1); SODIUM LEVEL 140 MEQ/L (136-145); TOTAL PROTEIN 7.9 GM/DL (6.4-8.2)
[2020-04-21] MEDS ORDERED: ISOVUE-370 76% 100ML VIAL As Ordered ONE (15:22)
--- NOTE | 2020-04-21 15:54 | REP ---
INDICATION: R flank pain, hematochezia, diarrhea. COMPARISON: CTA chest 09/03/2016. TECHNIQUE: Bolus of 100 mL Isovue 370 scanning through the abdomen pelvis with coronal and sagittal reconstructions. Delayed images through the abdomen also obtained. FINDINGS: CT abdomen: The lung bases are clear. Heart is not enlarged. There is no pericardial thickening or effusion. Some elevation of the right diaphragm, stable. Multiple scattered low-density foci in the liver consistent with cysts in the all lobes. Many of these are a few mm larger than on the study of 3 and half years ago. The largest of these 18 mm in the right hepatic lobe. No intrahepatic biliary dilatation or ascites. Spleen was unremarkable. Adrenal glands were normal. Kidneys show symmetric enhancement and without stone, mass, hydronephrosis or perinephric fluid seen. No hydroureter or ureteral stone on either side. Pancreas is unremarkable. Small bowel loops and colon within the abdomen proper were unremarkable. There is some diastasis of the rectus muscles with evidence for hernia repair in the periumbilical region. No recurrence hernia. Stool and gas are scattered in the colon. There are a few scattered diverticula in the left colon without colitis or diverticulitis. Lung window review of all CT slices in the abdomen pelvis shows no perforation or free air. Small bowel loops show no dilatation or mesenteric inflammatory changes. No free fluid or mesenteric ascites. Bone windows show lumbar and lower thoracic spine with some marginal osteophytes and facet arthropathy in lower lumbar spine but no compression fracture or destructive lesion. Visualized lower ribs intact. CT pelvis: Sacrum, pelvis and hips show no acute findings. Of bladder partially filled and without stone mass or wall thickening no distal ureteral dilatation or stone the uterus has an IUD in its fundus and is slightly retroverted. 3.4 cm cyst in the right ovary 3.3 cm cyst in the left ovary are noted. No pelvic free fluid. The distal small bowel loops are contrast or fluid-filled but unremarkable the terminal ileum did not show oral contrast. Cecum and appendix are seen and normal distal left colon shows a few scattered diverticula but was unremarkable sigmoid and rectum unremarkable. There is no ventral or inguinal hernia nor pathologic inguinal adenopathy IMPRESSION: 1. There is no renal, ureteral or bladder stone. No renal mass, infarct or hemorrhage. 2. Elevated right diaphragm unchanged from a prior chest CT 09/03/2016. 3. Small bowel loops and colon without acute findings there is no ascites, perforation or free air no colitis diverticulitis or appendicitis. 4. 3.4 cm right and 3.3 cm left ovarian cyst. An IUD is seen in place, the uterus slightly retroverted. Five multiple small of hepatic cysts involving all lobes and unchanged in number but a few mm larger for most of these compared to the study in 08/30. <Electronically signed by Michi Lubin > 04/21/20 [id number]
[2020-04-21 16:36] VITALS: BP 144/89
--- NOTE | 2020-04-24 11:59 | ED PDOC ---
Post-Departure Follow-Up ct abd/p faxed to dr tobin for fu Donna Olivas MD Apr 24, 2020 11:59
== END 2020-04-21 17:00 | disposition home or self-care (01) ==
LOC: M ED 12:18
DX: K76.89 Other specified diseases of liver (principal); K92.1 Melena; K92.2 Gastrointestinal hemorrhage, unspecified; K64.9 Unspecified hemorrhoids; F41.9 Anxiety disorder, unspecified; K21.9 Gastro-esophageal reflux disease without esophagitis; I25.2 Old myocardial infarction; Z85.41 Personal history of malignant neoplasm of cervix uteri; Z79.899 Other long term (current) drug therapy; Z97.5 Presence of (intrauterine) contraceptive device; Z88.0 Allergy status to penicillin; Z88.8 Allergy status to other drugs, medicaments and biological substances; Z91.018 Allergy to other foods; Z91.030 Bee allergy status; Z91.040 Latex allergy status
CPT/HCPCS: 74177; 80048; 80076; 81001; 83690; 85025; 85610; 85730; 86850; 86900; 86901; 87086; 96360; 99284; Q9963; Q9967

== ENCOUNTER → 2020-05-27 | Outpatient (CLI) | payer OTHER ==
[~2020-05-27] MED LIST changes: +VITMTA PO
== END ==
LOC: M LABSMTC 10:00
PROVIDERS: ATTEND Anesthesiology
DX: Z01.818 Encounter for other preprocedural examination (principal); Z20.828 Contact with and (suspected) exposure to other viral communicable diseases

== ENCOUNTER 2020-06-01 12:04 | Day surgery (SDC) | payer OTHER ==
[~2020-06-01] VITALS: Ht 172.7 cm; Wt 124.7 kg
[~2020-06-01 12:04] MED LIST changes: +NS 1,000 ML IV ONE
[2020-06-01] MEDS ORDERED: LIDOCAINE 2% 100MG/5ML SDV (FOR ANES.) As Ordered ONE (13:36)
[2020-06-01] MEDS ORDERED: propofoL 500 MG/50 ML VIAL As Ordered ONE (13:36)
--- NOTE | 2020-06-01 13:53 | ROOR ---
Patient Name: Maribel Donnelly Procedure Date: 06/01/2020 1:33 PM Date of : 1980 Age: 39 Room: [facility] Gender: Female Note Status: Finalized Procedure: Colonoscopy Indications: Rectal bleeding Providers: Leonardo Michelle Jr, MD Referring MD: Wyatt Alves MD Requesting Provider: Medicines: Propofol per Anesthesia Complications: No immediate complications. Procedure: Pre-Anesthesia Assessment: - Prior to the procedure, a History and Physical was performed, and patient medications and allergies were reviewed. The patient is competent. The risks and benefits of the procedure and the sedation options and risks were discussed with the patient. All questions were answered and informed consent was obtained. Patient identification and proposed procedure were verified by the physician and the nurse in the pre-procedure area and in the procedure room. Mental Status Examination: alert and oriented. Airway Examination: normal oropharyngeal airway and neck mobility. Respiratory Examination: clear to auscultation. CV Examination: normal. ASA Grade Assessment: II - A patient with mild systemic disease. After reviewing the risks and benefits, the patient was deemed in satisfactory condition to undergo the procedure. The anesthesia plan was to use moderate sedation / analgesia (conscious sedation). Immediately prior to administration of medications, the patient was re-assessed for adequacy to receive sedatives. The heart rate, respiratory rate, oxygen saturations, blood pressure, adequacy of pulmonary ventilation, and response to care were monitored throughout the procedure. The physical status of the patient was re-assessed after the procedure. The Colonoscope was introduced through the anus and advanced to the cecum, identified by appendiceal orifice and ileocecal valve. The colonoscopy was performed without difficulty. The patient tolerated the procedure well. The quality of the bowel preparation was adequate. Findings: The rectum, recto-sigmoid colon, descending colon, transverse colon, ascending colon, cecum, appendiceal orifice and ileocecal valve appeared normal. A few small and large-mouthed diverticula were found in the sigmoid colon. Non-bleeding external hemorrhoids were found during perianal exam. The hemorrhoids were moderate. Impression: - The rectum, recto-sigmoid colon, descending colon, transverse colon, ascending colon, cecum, appendiceal orifice and ileocecal valve are normal. - Diverticulosis in the sigmoid colon. - Non-bleeding external hemorrhoids. - No specimens collected. Recommendation: - Discharge patient to home (ambulatory). - Repeat colonoscopy in 10 years for screening purposes. Procedure Code(s): --- Professional --- 60032, Colonoscopy, flexible; diagnostic, including collection of specimen(s) by brushing or washing, when performed (separate procedure) Diagnosis Code(s): --- Professional --- K64.4, Residual hemorrhoidal skin tags K62.5, Hemorrhage of anus and rectum K57.30, Diverticulosis of large intestine without perforation or abscess without bleeding CPT copyright 2019 [employer]. All rights reserved. The codes documented in this report are preliminary and upon plastics fabricator or welder review may be revised to meet current compliance requirements. Leonardo Michelle MD Leonardo Michelle Jr, MD 06/01/2020 1:52:33 PM Electronically signed by Leonardo Michelle Jr, MD Number of Addenda: 0 Note Initiated On: 06/01/2020 1:33 PM Estimated Blood Loss: Estimated blood loss: none.
[2020-06-01 14:22] VITALS: BP 158/86
== END 2020-06-01 14:20 | disposition home or self-care (01) ==
LOC: M OPP 12:04
PROVIDERS: ATTEND Surgery
DX: K62.5 Hemorrhage of anus and rectum (principal); K64.4 Residual hemorrhoidal skin tags; K57.30 Diverticulosis of large intestine without perforation or abscess without bleeding

== ENCOUNTER → 2020-10-31 | Outpatient (REF) | payer OTHER ==
[~2020-10-31] MED LIST changes: -NS 1,000 ML IV ONE
== END ==
LOC: M SFHCWAGY 10:03
PROVIDERS: ATTEND Advanced Practice Midwife
DX: Z12.4 Encounter for screening for malignant neoplasm of cervix (principal)

== ENCOUNTER → 2020-11-01 | Outpatient (CLI) | payer OTHER ==
--- NOTE | 2020-11-01 10:30 | REP ---
INDICATION: PELVIC PAIN IUD PLACEMENT UNABLE TO FIND STRINGS COMPARISON: None. TECHNIQUE: Transabdominal pelvic ultrasound followed by transvaginal examination for better evaluation of the endometrium and adnexa. FINDINGS: Bladder is unremarkable and measures 4.4 x 2.2 x 3.3 cm. Heterogeneous retroverted uterus measures 8.7 x 4.4 x 5.5 cm. The endometrial complex measures 4.2 mm thickness. IUD identified in central satisfactory position. Bilateral ovaries are essentially normal in appearance. Right ovary measures 2.9 x 2.6 x 2.2 cm. Left ovary measures 2.9 x 2.1 x 3.1 cm and includes 1.3 cm presumed physiologic cyst. No pelvic fluid or adnexal mass lesion. IMPRESSION: Normal pelvic ultrasound. IUD identified in central satisfactory position. <Electronically signed by Saulo Ramos > 11/01/20 1020
--- NOTE | 2020-11-06 09:45 | REP ---
INDICATION: PELVIC PAIN IUD PLACEMENT UNABLE TO FIND STRINGS COMPARISON: None. TECHNIQUE: Supine view of the abdomen and pelvis. FINDINGS: Bowel gas pattern is nonspecific and without obstruction or perforation. No organomegaly. No abnormal calcifications. Skeletal structures intact. IUD identified in seemingly satisfactory position within the pelvis. IMPRESSION: Normal abdominal radiograph. IUD identified within the pelvis. <Electronically signed by Saulo Ramos > 11/06/20 0995
== END ==
LOC: M RAD 09:48
PROVIDERS: ATTEND Advanced Practice Midwife
DX: Z30.431 Encounter for routine checking of intrauterine contraceptive device (principal)

== ENCOUNTER → 2021-12-04 | Outpatient (CLI) | payer OTHER ==
[~2021-12-04] MED LIST changes: +OMEP40CA4 PO; -OMEP40CA97 PO
== END ==
LOC: M EKG 12:06
PROVIDERS: ATTEND Family Medicine
DX: R55 Syncope and collapse (principal)

== ENCOUNTER → 2023-07-15 | Outpatient (CLI) | payer OTHER | LOC: M WHC 08:25 | PROVIDERS: ATTEND Family Medicine | DX: N64.52 Nipple discharge (principal); R92.322 Mammographic fibroglandular density, left breast ==